=== PATIENT | female | born 2000 | race Caucasian/White ===

== ENCOUNTER 2019-06-21 02:31 | Emergency (ER) | payer BC ==
--- OUTSIDE RECORDS SUMMARY | 2019-06-21 02:34 | XMS REPORT | Clinical Summary ---
:2000 Author Organization [facility] Address [address] [place] [address] Care Team Providers Name Role Phone Unavailable Primary Care Provider Unavailable Allergies No Known Allergies Medications Medication Sig Dispensed Refills Start Date End Date Status PNV NO.95/FERROUS Take by mouth. 0 Active FUM/FOLIC AC ( MULTIVITAMINS ORAL) VALACYCLOVIR HCL (VALTREX Take by mouth. 0 Active ORAL) DOXYLAMINE SUCCINATE/VIT Take by mouth. 0 Active B6 (DICLEGIS ORAL) Active Problems Comments Yes No additional problems on file Social History Tobacco Use Types Packs/Day Years Used Date Never Smoker Alcohol Use Drinks/Week oz/Week Comments No Comments Yes Sex Assigned at Date Recorded Not on file Job Start Date Occupation Industry Not on file Not on file Not on file Travel History Travel Start Travel End No recent travel history available. Last Filed Vital Signs Not on file Plan of Treatment Not on file Results Not on fileafter 06/20/2018 Insurance Payer Benefit Plan / Subscriber ID Type Phone Address Group MEDICAID - MEDICAID COMM xxxxxxxxx Medicaid MEDICAID [facility] Contracted CARE BLUE CROSS/BLUE BCBS PPO POS xxxxxxxxxxxx PPO [phone] [address] [facility] CHOICE [address] [place] [phone]
--- OUTSIDE RECORDS SUMMARY | 2019-06-21 02:35 | XMS REPORT ---
:2000 Author Organization [facility] Address [address] [place] [address] Dr. Spear [address] [place] [id number] Care Team Providers Name Role Phone Unavailable Unavailable Unavailable Problems This patient has no known problems. Allergies, Adverse Reactions, Alerts This patient has no known allergies or adverse reactions. Medications This patient has no known medications. Results Test Description Test Time Test Comments Text Results Atomic Results Result Comments PATHOLOGY 2018-06-09 - [facility]:16[facility]00 [facility] [address] JAMIE WOODS M.D.JOSEPH M. WEMPE, M.D. Patient: JULIA RAI 2000 17 FRoom:Onofre#: [id number] Orderi ng Physician: Danny STACY Rec.: 06/08/2018Date of Proc.: 2017Lab No.: [id number] PRE- OPERATIVE DIAGNOSIS:- [id number], 33.5 week twin gestation, delivered primary .FINAL ANATOMIC DIAGNOSIS:TWIN PLACENTA, DELIVERY:- - MEMBRANES:- - DIAMNIONIC/DICHORIONIC.- - NEGATIVE FOR SIGNIFICANT ACUTE INFLAMMATION.- - CORDS:- - TRIVASCULAR CORDS WITH ALLANTOIC DUCT REMNANT IN TWIN A CORD.- - DISC:- - NO HISTOPATHOLOGIC FINDINGS IN EITHER DISC.- - TOTAL TWIN PLACENTA DISC WEIGHT: 854 GRAMS (80TH PERCENTILE FORTWIN PLACENTA OF 34 WEEKS ESTIMATED GESTATIONAL AGE).MICROSCOPIC EXAMINATION:- Performed; see diagnosis.GROSS APPEARANCE:- The specimen is labeled "placenta." Submitted in formalin is a 27x 15 x 2.8 cm twin placenta with connected membranes. Twin A ismarked by a single clamp shows a 38 cm length of cord while twin Bhas a double clamp. Both cords are 1.2 cm in diameter. Bothmembranes are disrupted away from the disc margins, twin A at apoint 2.0 cm from the margin and twin B 5.0 cm. The cords are bothcentral with A slightly more oblique than B. The A umbilical cordis 4.5 cm from the nearest margin and B 6.0 cm from the nearestmargin. The vessels show no anastomosis between the two sections.The shared membranes appear white, glistening and translucent andthere is no evidence of discoloration of the membranes of eithertwin. The coiling index on the twin A placenta is four coils per 10cm. The coiling index on twin B is one per 10 cm. The twin A cordis trivascular as is the twin B cord. No knots are seen. Of notethe shared membrane goes over approximately 1/3 of the twin A disc.Serially sectioning the disc demonstrates condensed beefy-redparenchyma with no discrete lesions. The trimmed disc weight is 854grams. Sections are submitted in accordance with a slide villafana.Slide villafana 1 shared membrane roll, twin A cord, 2 twin A membraneroll, twin B cord, 3 twin B membrane, shared section of disc, 4 fullthickness section of disc twin A, 5 full thickness section of disctwin B, RPE five blocks.PATHOLOGIST: Kevin Vaughn Electronically Signed: 06/09/2018 HEPATITIS C ANTIBODY SCREEN 2018-06-09 01:50:00 Test Item Value Reference Range Comments SCRN HCV (test code=SCRN HCV) NEGATIVE NEGATIVE Hepatitis C Antibody test is for screening purposes only. All reactives will be confirmed by additional testing. [id number] 07:15:00 Test Item Value Reference Range Comments WBC (test code=WBC) 16.3 K/UL 3.5-10.9 RBC (test code=RBC) 3.02 M/UL 4.0-5.0 HGB (test code=HGB) 10.3 G/DL 11.5-15.5 HCT (test code=HCT) 29.7 % 34-46 MCV (test code=MCV) 98.3 FL 80-98 MCH (test code=MCH) 34.1 PG 28-32 MCHC (test code=MCHC) 34.7 G/DL 32.5-36.5 RDW (test code=RDW) 14.6 % 11.5-14.5 PLT (test code=PLT) 221 K/UL 150-450 MPV (test code=MPV) 10.2 FL 7.4-10.4 MANDIFF (test code=MANDIFF) NO SCAN (test code=SCAN) NO NEUT% (test code=NEUT%) 74.6 % 40-75 LYMPH% (test code=LYMPH%) 14.8 % 24-44 MONO% (test code=MONO%) 9.2 % 0-13 EOS% (test code=EOS%) 0.3 % 0-4 BASO % (test code=BASO%) 0.1 % 0-2 IG% (test code=IG%) 1.0 % 0-1 IG%=Metamyelocytes, Myelocytes, and Promyelocytes. (Immature neutrophils not including "bands".) > 3% IG indicates risk of sepsis NRBC% (test code=NRBC%) 0 /100 WBC ABS NEUT (test code=NEUT) 12.2 K/UL 1.2-7.2 RPR FOR SERUM [id number] 15:10:00 Test Item Value Reference Range Comments RPR (test code=RPR) NONREACTIVE NONREACTIVE NR=NON-REACTIVE R=REACTIVE [id number] 11:56:00 Test Item Value Reference Range Comments BLOOD TYPE (test code=TYPE) O Rh Positive ANTIBODY SCREEN (test code=SCREEN) NEGATIVE NEGATIVE DRUG SCREEN W/ [id number] 10:19:00 Test Item Value Reference Range Comments AMPHETAMINES (test code=AMPHET) NEGATIVE NEGATIVE This is an unconfirmed screening. Result are to be used for medical purposes (treatment) only. Not intended for non-medical purposes. Cut-off concentration for a positive result for each drug: Amphetamine - 1,000 ng/ml Barbiturate - 200 ng/ml Benzodiazepine - 200 ng/ml Cannabinoids - 50 ng/ml Cocaine - 300 ng/ml Opiates - 300 ng/ml PCP - 25 ng/ml BARBITURATES (test code=CHUCKIE) NEGATIVE NEGATIVE BENZODIAZEPINES (test NEGATIVE NEGATIVE code=BENZO) CANNABINOIDS (test code=BETTE) NEGATIVE NEGATIVE COCAINE (test code=SEBASTIAN) NEGATIVE NEGATIVE OPIATES (test code=OPIATE) NEGATIVE NEGATIVE PHENCYCLIDINE(PCP) (test NEGATIVE NEGATIVE code=PHENCY) HIV 1/2 [id number] 09:49:00 Test Item Value Reference Range Comments HIV 1/2 ANTIBODY (test NONREACTIVE NONREACTIVE This test is used for code=AHIV) SCREENING purposes only. All reactive results are prelimenary and confirmation results will follow. HEPATITIS B SURF [id number] 09:49:00 Test Item Value Reference Range Comments HEPBSAG (test code=HEPBSAG) NEGATIVE NEGATIVE Hepatitis B Surface Antigen is for screening purpose only. All reactives will be sent to reference lab for confirmation. [id number] 09:49:00 Test Item Value Reference Range Comments GLUCOSE (test code=URGLU) NEGATIVE MG/DL NEG-100 BILIRUBN (test code=URBILI) NEGATIVE NEGATIVE KETONE (test code=URKET) 15 MG/DL NEGATIVE BLOOD (test code=URBLD) MODERATE UR PH (test code=URPH) 6.5 5.0-7.5 PROTEIN (test code=URPRO) TRACE MG/DL NEGATIVE NITRITES (test code=URNIT) NEGATIVE NEGATIVE UROBILINGEN (test code=URURO) 0.2 EU/DL 0.2-1.0 LEUKOCYT (test code=URLEU) NEGATIVE NEGATIVE UA COLOR (test code=UA COLOR) YELLOW YELLOW CLARITY (test code=CLARITY) CLEAR CLEAR SP GRAV (test code=URSPGRAV) 1.015 1.000-1.025 UAMICRO (test code=UAMICRO) YES WBC (test code=URWBC) 0 /HPF 0-5 RBC (test code=URRBC) 73 /HPF 0-2 CASTS (test code=CAST) 0 /LPF 0-3 UR EPI (test code=EPI) >50 /LPF BACTERIA (test code=BACTERIA) TRACE NONE [id number] 08:48:00 Test Item Value Reference Range Comments WBC (test code=WBC) 17.2 K/UL 3.5-10.9 RBC (test code=RBC) 3.10 M/UL 4.0-5.0 HGB (test code=HGB) 10.7 G/DL 11.5-15.5 HCT (test code=HCT) 30.2 % 34-46 MCV (test code=MCV) 97.4 FL 80-98 MCH (test code=MCH) 34.5 PG 28-32 MCHC (test code=MCHC) 35.4 G/DL 32.5-36.5 RDW (test code=RDW) 14.6 % 11.5-14.5 PLT (test code=PLT) 236 K/UL 150-450 MPV (test code=MPV) 10.3 FL 7.4-10.4 MANDIFF (test code=MANDIFF) NO SCAN (test code=SCAN) NO NEUT% (test code=NEUT%) 81.1 % 40-75 LYMPH% (test code=LYMPH%) 9.7 % 24-44 MONO% (test code=MONO%) 7.0 % 0-13 EOS% (test code=EOS%) 0.0 % 0-4 BASO % (test code=BASO%) 0.1 % 0-2 IG% (test code=IG%) 2.1 % 0-1 IG%=Metamyelocytes, Myelocytes, and Promyelocytes. (Immature neutrophils not including "bands".) > 3% IG indicates risk of sepsis NRBC% (test code=NRBC%) 0 /100 WBC ABS NEUT (test code=NEUT) 13.9 K/UL 1.2-7.2 FERN [id number] 07:53:00 Test Item Value Reference Range Comments FERN (test code=FERN) NEGATIVE NEGATIVE NEGATIVE=No ferning seen POSITIVE=Ferning seen US BIOPHYSICAL [id number] 17:36:[address] [id number] IMAGING REPORTPatient Name : Thomas RAI of Service: [id number]: 17 Sex: F Order #: [id number] Room: [facility] 3LDRDOB: 2000 X-Ray Number: [id number] Record Number: [id number] Hospital Number: [id number] Physician: Papo STACY Physician: MAYNOR STACY BIOPHYSICALMULTI- GESTATION, 06/06/2018 5:24 PM:History: well-being. Twin gestation assess for well-being.Comparison: NoneTechnique: Transabdominal grayscale and color Doppler imaging of the fetuswas performed with particular attention paid to the elements of fetalbiophysical profile over 30 minutes.Findings:Fetus A: There is a live intrauterine twin gestation with twin A in the cephalicpresentation.The placenta is posterior. The JOSEPHINE measures 13.0 centimeters.There is cardiac motion present at 146 bpm.BPP:Tone-2Movement- 2Breathing-2Amniotic fluid volume-2Total: 8/8Fetus B:Twin B is in the cephalic presentation. The placenta is posterior. The AFImeasures 13.0 centimeters. There is cardiac motion present at 146bpm.BPP:Rxer-0Tqnojdix-4Eembbmizg- 2Amniotic fluid volume-2Total: 8/8Impression:Normal BPP of 8/8 for both twin A and twin B.Electronically Signed By: Kevin Olmstead M.D., 06/06/2018 5:34 PMLegally authenticated by SRINIVASAN WILLS 2018-06-06 17:34:12MICROALBUMIN, RANDOM [id number] 19:01:00 Test Item Value Reference Range Comments MICROALB (test 2.2 mg/dL 0-1.7 A result of 30 to 300 g/mg is code=MICROALB) considered indicative of microalbuminuria A result of >=300 g/mg is considered indicative of macro (clinical) albuminuria Due to variability in urinary albumin excretion, at least two of three test results measured within a 6-month period should show elevated levels before a patient is designated as having microalbuminuria. Exercise within 24 hrs, infection, fever, congestive heart failure, marked hyperglycemia, and marked hypertension may elevate urinary albumin excretion values. MC RATIO (test code=MC 8.8 mg/g 0-30 A result of 30 to 300 g/mg is RATIO) considered indicative of microalbuminuria A result of >=300 g/mg is considered indicative of macro (clinical) albuminuria Due to variability in urinary albumin excretion, at least two of three test results measured within a 6-month period should show elevated levels before a patient is designated as having microalbuminuria. Exercise within 24 hrs, infection, fever, congestive heart failure, marked hyperglycemia, and marked hypertension may elevate urinary albumin excretion values. UR CREAT (test 250.0 mg/dL code=UCREMGDL) [id number] 18:35:00 Test Item Value Reference Range Comments GLUCOSE (test code=URGLU) NEGATIVE MG/DL NEG-100 BILIRUBN (test code=URBILI) NEGATIVE NEGATIVE KETONE (test code=URKET) NEGATIVE MG/DL NEGATIVE BLOOD (test code=URBLD) MODERATE UR PH (test code=URPH) 6.0 5.0-7.5 PROTEIN (test code=URPRO) NEGATIVE MG/DL NEGATIVE NITRITES (test code=URNIT) NEGATIVE NEGATIVE UROBILINGEN (test code=URURO) 0.2 EU/DL 0.2-1.0 LEUKOCYT (test code=URLEU) NEGATIVE NEGATIVE UA COLOR (test code=UA COLOR) YELLOW YELLOW CLARITY (test code=CLARITY) CLEAR CLEAR SP GRAV (test code=URSPGRAV) >=1.030 1.000-1.025 UAMICRO (test code=UAMICRO) YES WBC (test code=URWBC) 4 /HPF 0-5 RBC (test code=URRBC) 1 /HPF 0-2 CASTS (test code=CAST) 0 /LPF 0-3 UR EPI (test code=EPI) >50 /LPF BACTERIA (test code=BACTERIA) MODERATE NONE CRYSTALS (test code=CRYSTALS) 2 /HPF NONE CRYSTYPE (test code=CRYSTYPE) CALCIUM OXALATE MUCOUS (test code=URMUCOUS) SLIGHT /LPF NONE [id number] 16:52:00 Test Item Value Reference Range Comments WBC (test code=WBC) 10.1 K/UL 3.5-10.9 RBC (test code=RBC) 3.55 M/UL 4.0-5.0 HGB (test code=HGB) 11.6 G/DL 11.5-15.5 HCT (test code=HCT) 34.0 % 34-46 MCV (test code=MCV) 95.8 FL 80-98 MCH (test code=MCH) 32.7 PG 28-32 MCHC (test code=MCHC) 34.1 G/DL 32.5-36.5 RDW (test code=RDW) 14.5 % 11.5-14.5 PLT (test code=PLT) 242 K/UL 150-450 MPV (test code=MPV) 10.2 FL 7.4-10.4 MANDIFF (test code=MANDIFF) NO SCAN (test code=SCAN) NO NEUT% (test code=NEUT%) 71.1 % 40-75 LYMPH% (test code=LYMPH%) 17.7 % 24-44 MONO% (test code=MONO%) 9.1 % 0-13 EOS% (test code=EOS%) 1.0 % 0-4 BASO % (test code=BASO%) 0.2 % 0-2 IG% (test code=IG%) 0.9 % 0-1 IG%=Metamyelocytes, Myelocytes, and Promyelocytes. (Immature neutrophils not including "bands".) > 3% IG indicates risk of sepsis NRBC% (test code=NRBC%) 0 /100 WBC ABS NEUT (test code=NEUT) 7.2 K/UL 1.2-7.2 [id number] 16:41:00 Test Item Value Reference Range Comments SODIUM (test code=NA) 139 MMOL/L 137-145 K+ (test code=KSERUM) 4.2 MMOL/L 3.5-5.1 PLEASE NOTE NEW REFERENCE RANGE(S) IN EFFECT EFFECTIVE 06/15/2010 - NEW ANALYZER (VITROS 5600) CHLORIDE (test code=CL) 110 MMOL/L 98-107 CO2 (test code=CO2) 20 MMOL/L 22-30 BUN (test code=BUN) 7 MG/DL 7-17 CREA (test code=CREA) 0.6 MG/DL 0.7-1.2 GLUCOSE (test 96 MG/DL 70-99 Fasting glucose normal code=GLUCOSE) <100 MG/DL- [employer] recommendation CALCIUM (test 9.9 MG/DL 8.4-10.2 code=CABLOOD) TOTPROT (test 6.2 G/DL 6.3-8.2 code=TOTPROT) ALBUMIN (test 3.5 G/DL 3.5-5.0 code=ALBSERUM) BILITOT (test 0.5 MG/DL 0.2-1.3 code=BILITOT) AST (test code=AST) 19 U/L 15-46 PHOSALK (test 143 U/L 38-126 code=PHOSALK) ALT (test code=ALT) 28 U/L 13-69 GFR (test code=GFR) 137 mL/min/1.73m2 A GFR of >90 mL/min/1.73m2 is considered normal. US BIOPHYSICAL [id number] 18:26:[address] [id number] IMAGING REPORTPatient Name : Thomas RAI of Service: [id number]: 17 Sex: F Order #: [id number] Room: [facility] 3LDRDOB: 2000 X-Ray Number: [id number] Record Number: [id number] Hospital Number: [id number] Physician: GREG STACYOrdering Physician: GREG STACYBIOPHYSICAL PROFILE at 1716 hours on May 28, 2018:CLINICAL HISTORY: well-beingFINDINGS: breathing movement score equals 2.Gross body movement score equals 2. tone score equals 2.Qualitative amniotic fluid volume score equals 2.The JOSEPHINE is _13.1 cm__cm which is normal range.IMPRESSIONTotal fetalbiophysical profile score is 8 out of 8.Electronically Signed By: Irvin Sanchez M.D., 05/28/2018 6:23 PMLegally authenticated by PALMA Avilez 2018-05-28 18:23:55
--- NOTE | 2019-06-21 03:08 | ER ---
Nurse's Notes [facility] Name: Merry Winters Age: 18 yrs Sex: Female : 2000 Arrival Date: 06/21/2019 Time: 02:33 Bed 7 Private MD: Diagnosis: Epilepsy and recurrent seizures Presentation: 06/21 02:33 Presenting complaint: EMS states: "we were toned out for a patient with a probable jd3 seizure. when we arrived the patient was standing outside talking with boyfriend looking a little dazed postictal-like. she came around quick though and was A\\T\\O X 4 as we pulled out. boyfriend reported that she had about a 2 or so min seizure. the patient ended up biting her lip on the right bottom side of her lip, but other than that didn't sustain any injuries. we started an 18 G IV to the right AC.". Transition of care: patient was not received from another setting of care. Onset of symptoms was June 21, 2019. Risk Assessment: Do you want to hurt yourself or someone else? Patient reports no desire to harm self or others. Initial Sepsis Screen: Does the patient meet any 2 criteria? No. Patient's initial sepsis screen is negative. Does the patient have a suspected source of infection? No. Patient's initial sepsis screen is negative. Care prior to arrival: IV initiated. 18 GA, in the right antecubital area, Glucose check: 96. 02:33 Method Of Arrival: EMS: [facility] jd3 02:33 Acuity: CALEB 3 jd3 Triage Assessment: 02:38 General: Appears in no apparent distress. comfortable, Behavior is calm, cooperative, cc3 appropriate for age. Pain: Complains of pain in head. 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 - Social history:: Smoking status: Patient uses tobacco products, smokes one pack cigarettes per day. - Ebola Screening: : Patient negative for fever greater than or equal to 101.5 degrees Fahrenheit, and additional compatible Ebola Virus Disease symptoms. Screenin:42 Abuse screen: Denies threats or abuse. Nutritional screening: No deficits noted. jd3 Tuberculosis screening: No symptoms or risk factors identified. Fall Risk Fall in past 12 months (25 points). IV access (20 points). Ambulatory Aid- None/Bed Rest/Nurse Assist (0 pts). Gait- Normal/Bed Rest/Wheelchair (0 pts) Mental Status- Oriented to own ability (0 pts). Total Figueroa Fall Scale indicates Low Risk Score (25-44 pts). Fall prevention measures have been instituted. Side Rails Up X 2 Placed close to Nursing Station Frequent Obs/Assesments occuring. Assessment: 02:38 General: Appears in no apparent distress. comfortable, Behavior is calm, cooperative, cc3 appropriate for age. Pain: Complains of pain in head. Neuro: Level of Consciousness is awake, alert, obeys commands, Oriented to person, place, time, situation, Appropriate for age. Cardiovascular: Denies chest pain, Capillary refill < 3 seconds Patient's skin is warm and dry. Respiratory: Airway is patent Respiratory effort is even, unlabored, Respiratory pattern is regular, symmetrical. GI: Abdomen is flat. : No signs and/or symptoms were reported regarding the genitourinary system. EENT: No signs and/or symptoms were reported regarding the EENT system. Derm: Skin is intact, is healthy with good turgor, Skin is pink, warm \\T\\ dry. normal. Musculoskeletal: Circulation, motion, and sensation intact. Range of motion: intact in all extremities. 03:50 Reassessment: Patient appears in no apparent distress at this time. Patient and/or cc3 family updated on plan of care and expected duration. Pain level reassessed. Patient is alert, oriented x 3, equal unlabored respirations, skin warm/dry/pink. Dr. Vergara discharged the patient home, no prescription given. IV cannula removed and patient left ER vitally stable and ambulatory with her boyfriend. Patient denies pain at this time. Patient states feeling better. Patient states symptoms have improved. Vital Signs: 02:41 BP 104 / 75; Pulse 99; Resp 16 S; Temp 97.7(O); Pulse Ox 100% on R/A; Weight 58.97 kg jd3 (R); Height 5 ft. 6 in. (167.64 cm) (R); Pain 8/10; 03:30 BP 106 / 77; Pulse 97; Resp 15 S; Pulse Ox 100% on R/A; cc3 02:41 Body Mass Index 20.98 (58.97 kg, 167.64 cm) jd3 ED Course: 02:33 Patient arrived in ED. jd3 02:38 Triage completed. jd3 02:38 Elisha Bell is Primary Nurse. cc3 02:38 Maintain EMS IV. Dressing intact. Good blood return noted. Site clean \\T\\ dry. Gauge \\T\\ cc 3 site: gauge 18 right ACV. 02:39 Juanjo Vergara MD is Attending Physician. gs 02:42 Arm band placed on. jd3 02:43 Patient has correct armband on for positive identification. Placed in gown. Bed in low jd3 position. Call light in reach. Side rails up X2. Seizure precautions initiated. 03:07 Sam Purvis MD is Referral Physician. gs 03:45 No provider procedures requiring assistance completed. IV discontinued, intact, cc3 bleeding controlled, No redness/swelling at site. Pressure dressing applied. Administered Medications: 03:35 Drug: Tylenol 1000 mg Route: PO; cc3 03:50 Follow up: Response: No adverse reaction; Pain is decreased cc3 03:50 Follow up: Response: No adverse reaction; Pain is decreased; RASS: Alert and Calm (0) cc3 Outcome: 03:08 Discharge ordered by . 03:50 Discharged to home ambulatory, with boyfriend cc3 03:50 Condition: stable 03:50 Discharge instructions given to patient, Instructed on discharge instructions, follow up and referral plans. Demonstrated understanding of instructions, follow-up care. 03:51 Patient left the ED. cc3 Signatures: Juanjo Vergara MD MD Varun Smith RN RN j Elisha Bell cc3
--- NOTE | 2019-06-21 03:08 | EDPHYS ---
Physician Documentation [facility] Name: Merry Winters Age: 18 yrs Sex: Female : 2000 Arrival Date: 06/21/2019 Time: 02:33 Bed 7 Private MD: ED Physician Juanjo Vergara HPI: 06/21 02:58 This 18 yrs old Female presents to ER via EMS with complaints of sz. gs 02:58 The patient presents after having a single isolated seizure. Character of seizure(s): gs Loss of consciousness: Motor activity: generalized. Seizure onset: just prior to arrival. Context: the seizure(s) was witnessed, by a significant other, boyfriend. Seizure Hx: Last seizure: The patient's last seizure was approximately 5 year(s) ago. Associated injury: Head/face: lower lip, abrasion. Current symptoms: Currently, the patient is not experiencing any symptoms, the patient feels back to baseline. The patient has experienced a previous episode. [employer] PERSON: 02:41 LMP 05/2019 jd3 Historical: - Allergies: 02:41 No Known Allergies; jd3 - Home Meds: 02:41 Adderall oral oral [Active]; Xanax Oral as needed [Active]; jd3 - PMHx: 02:41 ADD/ADHD; jd3 - PSHx: 02:41 ; Tonsillectomy; jd3 - Immunization history:: Adult Immunizations up to date. - Social history:: Smoking status: Patient uses tobacco products, smokes one pack cigarettes per day. - Ebola Screening: : Patient negative for fever greater than or equal to 101.5 degrees Fahrenheit, and additional compatible Ebola Virus Disease symptoms. ROS: 02:58 All other systems are negative. gs Exam: 02:58 Head/Face: Normocephalic, atraumatic. Eyes: Pupils equal round and reactive to light, gs extra-ocular motions intact. Lids and lashes normal. Conjunctiva and sclera are non-icteric and not injected. Cornea within normal limits. Periorbital areas with no swelling, redness, or edema. ENT: Nares patent. No nasal discharge, no septal abnormalities noted. Tympanic membranes are normal and external auditory canals are clear. Oropharynx with no redness, swelling, or masses, exudates, or evidence of obstruction, uvula midline. Mucous membranes moist. Neck: Trachea midline, no thyromegaly or masses palpated, and no cervical lymphadenopathy. Supple, full range of motion without nuchal rigidity, or vertebral point tenderness. No Meningismus. Chest/axilla: Normal chest wall appearance and motion. Nontender with no deformity. No lesions are appreciated. Cardiovascular: Regular rate and rhythm with a normal S1 and S2. No gallops, murmurs, or rubs. Normal PMI, no JVD. No pulse deficits. Respiratory: Lungs have equal breath sounds bilaterally, clear to auscultation and percussion. No rales, rhonchi or wheezes noted. No increased work of breathing, no retractions or nasal flaring. Abdomen/GI: Soft, non-tender, with normal bowel sounds. No distension or tympany. No guarding or rebound. No evidence of tenderness throughout. Back: No spinal tenderness. No costovertebral tenderness. Full range of motion. Skin: Warm, dry with normal turgor. Normal color with no rashes, no lesions, and no evidence of cellulitis. MS/ Extremity: Pulses equal, no cyanosis. Neurovascular intact. Full, normal range of motion. Neuro: Awake and alert, GCS 15, oriented to person, place, time, and situation. Cranial nerves II-XII grossly intact. Motor strength 5/5 in all extremities. Sensory grossly intact. Cerebellar exam normal. Normal gait. 02:58 Constitutional: The patient appears alert, awake. Vital Signs: 02:41 BP 104 / 75; Pulse 99; Resp 16 S; Temp 97.7(O); Pulse Ox 100% on R/A; Weight 58.97 kg jd3 (R); Height 5 ft. 6 in. (167.64 cm) (R); Pain 8/10; 03:30 BP 106 / 77; Pulse 97; Resp 15 S; Pulse Ox 100% on R/A; cc3 02:41 Body Mass Index 20.98 (58.97 kg, 167.64 cm) jd3 MDM: 02:57 Patient medically screened. 02:58 Differential diagnosis: seizure. Data reviewed: vital signs, nurses notes. Counseling: gs I had a detailed discussion with the patient and/or guardian regarding: the historical points, exam findings, and any diagnostic results supporting the discharge/admit diagnosis, the need for outpatient follow up, a neurologist. Administered Medications: 03:35 Drug: Tylenol 1000 mg Route: PO; cc3 03:50 Follow up: Response: No adverse reaction; Pain is decreased cc3 03:50 Follow up: Response: No adverse reaction; Pain is decreased; RASS: Alert and Calm (0) cc3 Disposition: 06/21/19 03:08 Discharged to Home. Impression: Epilepsy and recurrent seizures. - Condition is Stable. - Discharge Instructions: Seizure, Adult. - Medication Reconciliation Form, Thank You Letter, Antibiotic Education, Prescription Opioid Use form. - Follow up: Sam Purvis MD; When: 2 - 3 days; Reason: Re-evaluation by your physician. Signatures: Juanjo Vergara MD MD gs Davies, Jonathon, RN RN jElisha Estrada cc3 Corrections: (The following items were deleted from the chart) 03:51 03:08 06/21/2019 03:08 Discharged to Home. Impression: Epilepsy and recurrent seizures. cc3 Condition is Stable. Forms are Medication Reconciliation Form, Thank You Letter, Antibiotic Education, Prescription Opioid Use. Follow up: Sam Purvis; When: 2 - 3 days; Reason: Re-evaluation by your physician.
[2019-06-21] MEDS ORDERED: ACETAMINOPHEN 500 MG TAB ONE (03:39)
== END 2019-06-21 03:51 | disposition home or self-care (01) ==
LOC: ER 02:31
DX: G40.802 Other epilepsy, not intractable, without status epilepticus (principal); F90.9 Attention-deficit hyperactivity disorder, unspecified type; F17.210 Nicotine dependence, cigarettes, uncomplicated
CPT/HCPCS: 99283